=== PATIENT | female | born 1990 | race African-American/Black ===

== ENCOUNTER 2023-04-10 12:30 | Emergency (ER) | payer BC ==
[2023-04-10 12:36] VITALS: BP 110/63; PULSE 67; RESP 16; TEMP 98; BMI 25.8
[2023-04-10] MEDS ORDERED: DEXAMETHASONE SOD PHOSPHATE 10 MG/1 ML VIAL PO ONE (12:48)
[2023-04-10] MEDS ORDERED: ACETAMINOPHEN 500 MG TABLET (FP) PO ONE (12:50)
[2023-04-10] MEDS ORDERED: ACETAMINOPHEN 500 MG TABLET (FP) ONE (12:52)
[2023-04-10] MEDS ORDERED: DEXAMETHASONE SOD PHOSPHATE 10 MG/1 ML VIAL ONE (12:53)
[2023-04-10 14:44] LABS: THROAT:GRP A STREP NOT DETECTED (NOTDETECTED)
== END 2023-04-10 13:39 | disposition home or self-care (01) ==
LOC: FER 12:30
PROC: 3E033GC Introduction of Other Therapeutic Substance into Peripheral Vein, Percutaneous Approach (ICD-10-PCS; principal; 2023-04-10)
DX: J02.9 Acute pharyngitis, unspecified (principal); H93.8X1 Other specified disorders of right ear; R05.9 Cough, unspecified; R09.3 Abnormal sputum; H92.01 Otalgia, right ear; J06.9 Acute upper respiratory infection, unspecified; R07.0 Pain in throat; R51.9 Headache, unspecified; Z20.822 Contact with and (suspected) exposure to COVID-19
CPT/HCPCS: 0241U-QW; 71046-TC-FY; 87651; 99284-25; J1100